=== PATIENT | male | born 1975 | race Hispanic/Latino ===

== ENCOUNTER 2017-03-30 15:32 | Emergency (ER) | payer OTHER ==
[2017-03-30 15:32] VITALS: BMI 30.1
[2017-03-30 15:39] VITALS: PULSE 99; O2SAT 96
--- NOTE | 2017-03-30 16:24 | C.PDOC ---
History Of Present Illness 41 year old male with presents to the ED for evaluation of abdominal and groin pain pain. Patient reports he had umbilical hernia surgery 2 years ago. Patient went to his PMD few days ago who told him he had another hernia. Patient reports he was working out with some weights and after that he started feeling pain in his abdomen, pelvis and testicles. 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 Patient denies dysuria, hematuria, fever, nausea, vomit, diarrhea, rectal pain. Time Seen by Provider: 03/30/17 15:45 Chief Complaint (Nursing): Abdominal Pain History Per: Patient History/Exam Limitations: no limitations Onset/Duration Of Symptoms: Days Current Symptoms Are (Timing): Still Present Location Of Pain/Discomfort: Periumbilical Radiation Of Pain To:: Other (Pelvis, testicles) Quality Of Discomfort: "Pain" Associated Symptoms: denies: Fever, Chills, Back Pain, Urinary Symptoms Alleviating Factors: None Recent travel outside of the [place]: No Additional History Per: Patient Past Medical History Reviewed: Historical Data, Nursing Documentation, Vital Signs Vital Signs: Last Vital Signs Temp 97.9 F 03/30/17 18:08 Pulse 99 H 03/30/17 18:08 Resp 20 03/30/17 18:08 BP 134/86 03/30/17 18:08 Pulse Ox 96 03/30/17 18:22 - Medical History PMH: Anxiety, Depression, Fractures (left big toe), HTN, Hypercholesterolemia Surgical History: Appendectomy, Hernia Repair - [facility] Procedures ABD WALL PHI REPAIR NEC (12/27/13) Family History: States: Unknown Family Hx - Social History Hx Alcohol Use: Yes Hx Substance Use: No - Immunization History Hx Tetanus Toxoid Vaccination: No Hx Influenza Vaccination: No Hx Pneumococcal Vaccination: No Review Of Systems Constitutional: Negative for: Fever, Chills Cardiovascular: Negative for: Chest Pain, Palpitations Respiratory: Negative for: Cough, Shortness of Breath Gastrointestinal: Positive for: Abdominal Pain. Negative for: Nausea, Vomiting Genitourinary: Negative for: Dysuria, Hematuria, Scrotal Pain, Penile Pain Skin: Negative for: Rash Neurological: Negative for: Weakness, Numbness Physical Exam - Physical Exam Appears: Non-toxic, No Acute Distress Skin: Normal Color, Warm, Dry Head: Atraumatic, Normacephalic Eye(s): bilateral: Normal Inspection, EOMI Nose: No Discharge Oral Mucosa: Moist Neck: Normal ROM, Supple Chest: Symmetrical Cardiovascular: Rhythm Regular, No Murmur Respiratory: Normal Breath Sounds, No Rales, No Rhonchi, No Wheezing Gastrointestinal/Abdominal: Soft, No Tenderness, Mass (Left periumbilical area with tenderness and soft palpable mass) Male Genital: Normal Inspection, No Testicular Tenderness, No Testicular Swelling, No Scrotal Swelling (no redness), Circumcised, Other (left inguinal small hernia, nontender) Extremity: Normal ROM, No Pedal Edema, No Calf Tenderness, No Swelling Neurological/Psych: Oriented x3, Normal Speech, Other (No focal deficits) Gait: Steady ED Course And Treatment - Laboratory Results Result Diagrams: 03/30/17 16:25 03/30/17 16:25 Lab Interpretation: No Acute Changes O2 Sat by Pulse Oximetry: 96 (On RA) Pulse Ox Interpretation: Normal - CT Scan/US abd/pelvis Other Rad Studies (CT/US): Read By Radiologist, Radiology Report Reviewed CT/US Interpretation: Creator : Sarai Wallis. Dictator : Ed Taylor MD. Lean Manufacturing Leader : Free Lance Artist : Ed Taylor MD. Approver2 : Report Date : 03/30/2017 17:24:49. My Comment : . PROCEDURE: CT Abdomen and Pelvis with contrast. HISTORY: periumbilcal and lower abd pain b/l. COMPARISON: None. TECHNIQUE: Contrast dose: 100 mL Visipaque 320. Radiation dose: Total exam DLP = 567.69 mGy-cm. This CT exam was performed using one or more of the following dose reduction techniques: Automated exposure control, adjustment of the mA and/or kV according to patient size, and/or use of iterative reconstruction technique. FINDINGS: LOWER THORAX: Unremarkable. LIVER: Unremarkable. No gross lesion or ductal dilatation. GALLBLADDER AND BILE DUCTS: Unremarkable. PANCREAS: Unremarkable. No gross lesion or ductal dilatation. SPLEEN: Unremarkable. ADRENALS: Unremarkable. No mass. KIDNEYS AND URETERS: Unremarkable. No hydronephrosis. No solid mass. VASCULATURE: Unremarkable. No aortic aneurysm. BOWEL: Unremarkable. No obstruction. No gross mural thickening. APPENDIX: The appendix is not visualized. There is no evidence of acute appendicitis. Venkat. PERITONEUM: Unremarkable. No free fluid. No free air. LYMPH NODES: Unremarkable. No enlarged lymph nodes. BLADDER: Mild urinary bladder wall thickening. REPRODUCTIVE: The prostate is mildly enlarged. BONES: No acute fracture. OTHER FINDINGS: None. IMPRESSION : No evidence of acute pathology in the abdomen and pelvis. Mild urinary bladder wall thickening. No CT evidence of cholecystitis pancreatitis or appendicitis. Medical Decision Making Medical Decision Making: Impression : abdominal pain radiates to groin Plan: * CT abdomen/pelvis * Blood work * UA patient with periumbilical pain and has history of prior hernia repair. Abdomen soft but tender. Patient's genital exam was done with SUELLEN Iqbal as the leaf blender. No testicular swelling, erythema or tenderness. Labs ordered and reviewed with no acute findings and urine clean. CT is pending. Patient remained seated on stretcher in no distress. CT reviewed showing no acute pathology. I discussed all results with patient and provided copy of results. I recommended rest and to avoid heavy lifting. Can follow up with PCP and general surgery for further evaluation Disposition Counseled Patient/Family Regarding: Studies Performed, Diagnosis, Need For Followup, Rx Given - Disposition Referrals: Cris Pearce MD [Medical Doctor] - Arnulfo Titus Jr., MD [Staff Provider] - Disposition: HOME/ ROUTINE Disposition Time: 18:05 Condition: STABLE Additional Instructions: A copy of your labs and CT scan were provided to you. Please follow up with your primary doctor and general surgeon for further evaluation Take Tylenol for mild pain and Tramadol for more severe pain medicine as needed. Avoid any heavy lifting for few days. Return to the emergency department at any time if symptoms persist or worsen. Prescriptions: traMADol [Ultram] 50 mg PO Q8 PRN #20 tab PRN Reason: Pain, Moderate (4-7) Instructions: Inguinal Hernia (DC), Acute Abdominal Pain (DC) Forms: [employer] (Danish), Work Excuse - POA Present On Arrival: None - Clinical Impression Clinical Impression: Inguinal hernia, Abdominal pain - PA / SECURITIES SETTLEMENT PROCESSOR / Resident Statement MD/DO has reviewed & agrees with the documentation as recorded. - Scribe Statement The provider has reviewed the documentation as recorded by the Scribe Gustavo Martell All medical record entries made by the [employer] were at my direction and personally dictated by me. I have reviewed the chart and agree that the record accurately reflects my personal performance of the history, physical exam, medical decision making, and the department course for this patient. I have also personally directed, reviewed, and agree with the discharge instructions and disposition.
[2017-03-30 16:34] LABS: BASO # 0.2 K/uL (0.0-0.2); BASO % 2.5 % (0.0-2.0); EOS # 0.3 K/uL (0.0-0.7); EOS % 5.3 % (0.0-4.0); HEMATOCRIT 43.5 % (35.0-51.0); LYMPH # 1.9 K/uL (1.0-4.3); LYMPH % 30.4 % (20.0-40.0); MEAN CORPUSCULAR HEMOGLOBIN 30.3 pg (27.0-31.0); MEAN CORPUSCULAR HGB CONC 35.2 g/dL (33.0-37.0); MEAN PLATELET VOLUME 7.1 fL (7.2-11.7); MONO # 0.4 K/uL (0.0-0.8); MONO % 6.3 % (0.0-10.0); NRBC % 0.1 % (0.0-2.0); RED CELL DISTRIBUTION WIDTH 13.3 % (11.5-14.5); WHITE BLOOD COUNT 6.2 K/uL (4.8-10.8)
[2017-03-30 16:43] LABS: ALKALINE PHOSPHATASE 62 U/L (38-126); ALT/SGPT 50 U/L (21-72); AST/SGOT 26 U/L (17-59); BILIRUBIN,TOTAL 0.4 mg/dL (0.2-1.3); BLOOD UREA NITROGEN 13 mg/dL (9-20); CALCIUM 9.1 mg/dl (8.6-10.4); CARBON DIOXIDE 31 mmol/L (22-30); CHLORIDE 99 mmol/L (98-107); GFR AFRICAN-AMERICAN > 60; GLUCOSE,RANDOM 122 mg/dL (75-110); POTASSIUM 3.7 mmol/L (3.6-5.2); SODIUM 138 mmol/L (132-148); TOTAL PROTEIN 8.8 g/dL (6.3-8.3)
[2017-03-30 16:44] LABS: ALB/GLOB RATIO 1.1 (1.0-2.1)
[2017-03-30 16:58] LABS: RBC URINE < 1 /hpf (0-3); URINE BILIRUBIN NEGATIVE (NEGATIVE); URINE BLOOD NEGATIVE (NEGATIVE); URINE COLOR Colorless (YELLOW); URINE GLUCOSE (UA) NORMAL (Normal); URINE KETONE NEGATIVE (NEGATIVE); URINE LEUKOCYTE ESTERASE NEG Leu/uL (Negative); URINE PROTEIN NEGATIVE (NEGATIVE); URINE UROBILINOGEN NORMAL mg/dL (0.2-1.0)
[2017-03-30] MEDS ORDERED: Iodixanol 320 MG/ML 100 ML BOTTLE IV ONE (17:02)
--- NOTE | 2017-03-30 18:01 | CT ---
PROCEDURE: CT Abdomen and Pelvis with contrast HISTORY: periumbilcal and lower abd pain b/l COMPARISON: None. TECHNIQUE: Contrast dose: 100 mL Visipaque 320 Radiation dose: Total exam DLP = 567.69 mGy-cm. This CT exam was performed using one or more of the following dose reduction techniques: Automated exposure control, adjustment of the mA and/or kV according to patient size, and/or use of iterative reconstruction technique. FINDINGS: LOWER THORAX: Unremarkable. LIVER: Unremarkable. No gross lesion or ductal dilatation. GALLBLADDER AND BILE DUCTS: Unremarkable. PANCREAS: Unremarkable. No gross lesion or ductal dilatation. SPLEEN: Unremarkable. ADRENALS: Unremarkable. No mass. KIDNEYS AND URETERS: Unremarkable. No hydronephrosis. No solid mass. VASCULATURE: Unremarkable. No aortic aneurysm. BOWEL: Unremarkable. No obstruction. No gross mural thickening. APPENDIX: The appendix is not visualized. There is no evidence of acute appendicitis. Venkat PERITONEUM: Unremarkable. No free fluid. No free air. LYMPH NODES: Unremarkable. No enlarged lymph nodes. BLADDER: Mild urinary bladder wall thickening. REPRODUCTIVE: The prostate is mildly enlarged. BONES: No acute fracture. OTHER FINDINGS: None. IMPRESSION: No evidence of acute pathology in the abdomen and pelvis. Mild urinary bladder wall thickening. No CT evidence of cholecystitis pancreatitis or appendicitis.
[2017-03-30 18:09] VITALS: BP 134/86; RESP 20; TEMP 97.9
== END 2017-03-30 18:35 | disposition home or self-care (01) ==
LOC: C.ER 15:32
DX: K40.90 Unilateral inguinal hernia, without obstruction or gangrene, not specified as recurrent (principal); R10.33 Periumbilical pain
CPT/HCPCS: 74177; 80053; 81001; 83690; 85025; 99283; Q9967